=== PATIENT | female | born 1985 | race Hispanic/Latino ===

== ENCOUNTER 2018-03-24 16:02 | Observation (INO) | payer BC ==
[2018-03-24 16:41] LABS: VENOUS BLOOD GAS BASE EXCESS 2.8 mmol/L (0.0-2.0); VENOUS BLOOD GAS PCO2 63 mmHg (40-60); VENOUS BLOOD GAS PO2 17 mm/Hg (30-55)
[2018-03-24 16:45] LABS: BASO % 0.5 % (0.0-2.0); EOS % 0.1 % (0.0-4.0); HEMOGLOBIN 13.2 g/dL (12.0-16.0); LYMPH # 2.4 K/uL (1.0-4.3); MEAN CELL VOLUME 89.2 fl (81.0-99.0); MEAN CORPUSCULAR HEMOGLOBIN 29.8 pg (27.0-31.0); MEAN CORPUSCULAR HGB CONC 33.4 g/dL (33.0-37.0); MEAN PLATELET VOLUME 10.3 fl (7.2-11.7); MONO # 0.7 K/uL (0.0-0.8); MONO % 7.5 % (0.0-10.0); NEUT # 5.8 K/uL (1.8-7.0); NEUT % 64.9 % (50.0-75.0); NRBC % 0.1 % (0.0-0.0); RBC 4.42 Mil/uL (3.80-5.20); RED CELL DISTRIBUTION WIDTH 15.6 % (11.5-14.5)
[2018-03-24 16:46] LABS: PARTIAL THROMBOPLASTIN TIME 43.5 Seconds (25.6-37.1)
[2018-03-24 16:52] LABS: ALB/GLOB RATIO 1.4 (1.0-2.1); ALBUMIN 4.8 g/dL (3.5-5.0); ALT/SGPT 27 U/L (9-52); AST/SGOT 24 U/L (14-36); BLOOD UREA NITROGEN 15 mg/dl (7-17); CALCIUM 9.6 mg/dL (8.4-10.2); GFR NON-AFRICAN AMERICAN > 60
[2018-03-24] MEDS ORDERED: Sodium Chloride 0.9% 1,000 ML IV STA ×3 (17:02→17:57)
--- NOTE | 2018-03-24 17:12 | CP.PCM.HP ---
History of Present Illness - History of Present Illness History of Present Illness: 32yo female 1 week s/p LEEP cone bx. Pt reports multiple episodes of vaginal bleeding since procedure. Pt reports heavy bleeding today. Pt presented to ED with unstable VS and loss of consciousness. Pt given IVF and VS normalized. Present on Admission - Present on Admission Any Indicators Present on Admission: No History of DVT/PE: No History of Uncontrolled Diabetes: No Urinary Catheter: No Decubitus Ulcer Present: No Review of Systems - Review of Systems Systems not reviewed;Unavailable: Unstable Vital Signs Past Patient History - Past Social History Smoking Status: Never Smoked - ENDOCRINE/METABOLIC Hx Endocrine Disorders: Yes Hx Hypothyroidism: Yes - PSYCHIATRIC Hx Substance Use: No - SURGICAL HISTORY Hx Surgeries: Yes Other/Comment: Breast reduction, cone biopsy, pilonidal cyst removal. Meds Allergies/Adverse Reactions: Allergies Allergy/AdvReac Type Severity Reaction Status Date / Time No Known Allergies Allergy Verified 03/24/18 16:05 Physical Exam - Constitutional Appears: In Acute Distress - Respiratory Exam Respiratory Exam: Clear to Auscultation Bilateral, NORMAL BREATHING PATTERN - Cardiovascular Exam Cardiovascular Exam: REGULAR RHYTHM - GI/Abdominal Exam GI & Abdominal Exam: Soft. absent: Distended, Tenderness - Exam Additional comments: Large amount of blood and clots in vaginal. Area actively bleeding. Unable to fully visualize cervix due to heavy amount of bleeding. Results - Vital Signs Recent Vital Signs: Last Vital Signs Temp 98.3 F 03/24/18 17:05 Pulse 81 03/24/18 17:05 Resp 13 03/24/18 17:05 BP 136/88 03/24/18 17:05 Pulse Ox 99 03/24/18 16:05 - Labs Result Diagrams: 03/24/18 16:35 03/24/18 16:35 Labs: Laboratory Results - last 24 hr 03/24/18 03/24/18 03/24/18 16:15 16:31 16:35 WBC RBC Hgb Hct MCV MCH MCHC RDW Plt Count MPV Neut % (Auto) Lymph % (Auto) [place] % (Auto) Eos % (Auto) Baso % (Auto) Neut # (Auto) Lymph # (Auto) [place] # (Auto) Eos # (Auto) Baso # (Auto) PT INR APTT pO2 17 L VBG pH 7.30 L VBG pCO2 63 H VBG HCO3 25.0 VBG Total CO2 32.9 H VBG O2 Sat (Calc) 22.5 L VBG Base Excess 2.8 H VBG Potassium 3.6 Sodium 138.0 139 Chloride 100.0 99 Glucose 99 Lactate 2.0 FiO2 21.0 Blood Gas Comments Lac=2.0 Crit Value Called To blanca Alberto Crit Value Called By 22 Crit Value Read Back Y Blood Gas Notified Time 1640 Potassium 3.5 L Carbon Dioxide 26 Anion Gap 18 BUN 15 Creatinine 0.7 Est GFR ( Amer) > 60 Est GFR (Non-Af Amer) > 60 Random Glucose 105 Calcium 9.6 Total Bilirubin 0.2 AST 24 ALT 27 Alkaline Phosphatase 71 Total Protein 8.2 Albumin 4.8 Globulin 3.4 Albumin/Globulin Ratio 1.4 Beta HCG, Quant < 2.39 Venous Blood Potassium 3.6 Crossmatch See Detail 03/24/18 03/24/18 16:35 16:35 WBC 9.0 RBC 4.42 Hgb 13.2 Hct 39.4 MCV 89.2 MCH 29.8 MCHC 33.4 RDW 15.6 H Plt Count 223 MPV 10.3 Neut % (Auto) 64.9 Lymph % (Auto) 27.0 [place] % (Auto) 7.5 Eos % (Auto) 0.1 Baso % (Auto) 0.5 Neut # (Auto) 5.8 Lymph # (Auto) 2.4 [place] # (Auto) 0.7 Eos # (Auto) 0.0 Baso # (Auto) 0.0 PT 11.0 INR 1.0 APTT 43.5 H pO2 VBG pH VBG pCO2 VBG HCO3 VBG Total CO2 VBG O2 Sat (Calc) VBG Base Excess VBG Potassium Sodium Chloride Glucose Lactate FiO2 Blood Gas Comments Crit Value Called To Crit Value Called By Crit Value Read Back Blood Gas Notified Time Potassium Carbon Dioxide Anion Gap BUN Creatinine Est GFR ( Amer) Est GFR (Non-Af Amer) Random Glucose Calcium Total Bilirubin AST ALT Alkaline Phosphatase Total Protein Albumin Globulin Albumin/Globulin Ratio Beta HCG, Quant Venous Blood Potassium Crossmatch Assessment & Plan - Assessment and Plan (Free Text) Assessment: Acute vaginal bleeding s/p LEEP cone biopsy; Unstable VS with evidence of acute anemia. Plan: Discussed with patient the need for exam under anesthesia and stopping the bleeding with either electrocautery or suturing. Discussed the R/B/A of surgery with patient and all patient questions answered. OR notified and patient transferred STAT to ED. - Date & Time Date: 03/24/18 Time: 17:17
[2018-03-24] MEDS ORDERED: Phenylephrine 10 mg/ml Inj ONE (17:24)
[2018-03-24] MEDS ORDERED: Etomidate 20 mg/10ml Inj IV ONE (17:24)
[2018-03-24] MEDS ORDERED: Succinylcholine 200 mg/10 ml Inj IV ONE (17:24)
[2018-03-24] MEDS ORDERED: Lidocaine 4% (Laryng-O-Jet) Kit MM ONE (17:25)
[2018-03-24] MEDS ORDERED: Silver Nitrate Topical - Stick ONE (17:32)
[2018-03-24] MEDS ORDERED: cefOXitin IV 1 gm in Dextrose 0 GM/0 ML BAG IVPB ONE (17:32)
[2018-03-24] MEDS ORDERED: ACETIC ACID 3% 30 ML LIQUID MC ONE (17:32)
[2018-03-24] MEDS ORDERED: Bupivacaine HCl 0.5% PF (30 ml) Inj ONE (17:32)
[2018-03-24] MEDS ORDERED: Strong Iodine Topical Sol. 5%-10% ONE (17:32)
[2018-03-24] MEDS ORDERED: Ferric Subsulfate Sol(60 mL) ONE (17:32)
[2018-03-24] MEDS ORDERED: Sodium Chloride 0.9% 1,000 ML IV ONE (17:40)
[2018-03-24] MEDS ORDERED: Lactated Ringer's 1,000 ML IV ONE (18:00)
[2018-03-24] MEDS ORDERED: Dexamethasone 4 mg/1 ml ONE (18:24)
[2018-03-24] MEDS ORDERED: Lactated Ringer's 1,000 ML IV SCH (18:45)
--- NOTE | 2018-03-24 18:52 | ED PDOC ---
HPI: Female Pain Time Seen by Provider: 03/24/18 16:19 Chief Complaint (Nursing): Female Genitourinary History Per: Patient History/Exam Limitations: clinical condition Onset/Duration Of Symptoms: Days Current Symptoms Are (Timing): Still Present Additional Complaint(s): 32 yo F presented to the ED with complaint of vaginal bleeding following a colposcopy procedure. RN noted patient to be tachycardic and immediately placed IVs and began fluids and came to get this writter for immediate evaluation. On entering the room, the patient was altered and then became unconscious. Heart rate was seen to drop from the 70s at the time of entering the room to the 50s. Bright red blood was seen covering both legs and a large grapefruit sized clot seen between her legs with continuous bleeding from vagina seen. Pt was pale, unresponsive to sternal rub but BP was normal and breath sounds were clear bilaterally with 99% O2 sats on NC. A second liter of fluids was hung with pressure bags. Curber was immediately called to the ED, an RN went to the blood bank to get 2 units of O neg blood, and patient moved into the trauma room. Once in trauma room blood transfusion was started. In trauma room, pt became responsive and able to provide the following history : On March 18, pt had a cone biopsy performed by her table hand in [facility] (near pts home in [place]). Pt continued to have spotting for the next two days and return to the table hand and a "sponge" was place to stop the bleeding. TOday the patient had to take her son to [place] where he sees a specialist for a prosthetic eye. She was then driving to [place] to visit her sister when she noticed she was bleeding heavily. When she was closer to her sister's house, the blood was "pouring from the vagina". She called her sister to meet her at the hospital. Pt states she has been following a table hand routinely due to abnormalities following the of her last child 2 years ago and for HPV workup. She denies history of bleeding disorders. Pt has hypothyroidism and takes medications for that. Curber quickly responded to the ED and his initially evaluation, he determined the patient needed to go to the OR. Labs had been sent. Abnormal Vaginal Bleeding: Yes Past Medical History Vital Signs: Last Vital Signs Temp 98.1 F 03/24/18 17:47 Pulse 76 03/24/18 17:47 Resp 19 03/24/18 17:47 BP 129/70 03/24/18 17:47 Pulse Ox 100 03/24/18 17:47 - Medical History PMH: Hypothyroidism - Family History Family History: States: Unknown Family Hx - Home Medications Home Medications: Ambulatory Orders Medication Instructions Recorded Ethinyl Estradiol/Drospirenone 1 each PO DAILY 03/24/18 [Mary Carmen 28 Tablet] Levothyroxine [Synthroid] 75 mcg PO DAILY 03/24/18 Venlafaxine [Effexor XR] 150 mg PO DAILY 03/24/18 Venlafaxine [Effexor-XR] 75 mg PO DAILY 03/24/18 - Allergies Allergies/Adverse Reactions: Allergies Allergy/AdvReac Type Severity Reaction Status Date / Time No Known Allergies Allergy Verified 03/24/18 16:05 Review of Systems Constitutional: Positive for: Weakness Cardiovascular: Negative for: Chest Pain, Palpitations Respiratory: Negative for: Cough, Shortness of Breath Gastrointestinal: Negative for: Nausea, Vomiting, Abdominal Pain Genitourinary Female: Positive for: Vaginal Bleeding Neurological: Positive for: Weakness Physical Exam - Physical Exam Appears: Positive for: In Acute Distress Head Exam: Positive for: ATRAUMATIC Skin: Positive for: Pallor, Cyanosis Eye Exam: Positive for: Normal appearance, EOMI, PERRL Cardiovascular/Chest: Positive for: Bradycardia, Tachycardia (initially tachycardic and became bradycardic during resuscitaiton) Respiratory: Positive for: Normal Breath Sounds Pulses-Dorsalis Pedis (L): 1+ Pulses-Dorsalis Pedis (R): 1+ Pulses-Radial (L): 1+ Pulses-Radial (R): 1+ Pelvic Exam: Positive for: Active Bleeding (with large clots filling multiple basins) - Laboratory Results Result Diagrams: 03/25/18 05:45 03/24/18 16:35 - ECG O2 Sat by Pulse Oximetry: 100 - Critical Care Total Time (In Min): 100 (resuscitation and stabilation for OR) Medical Decision Making Medical Decision Making: see HPI. Pt initially walked in with vaginal bleeding following colposcopy. Sutures most likely didn't hold causing severe vaginal bleeding leading to hypovolemia. Pt responded to initial IV fluids and then was started on 2L of blood transfusion. Gyneclogist promptly responded to the ED and arrived as pt regained consciousness. Curber did pelvic exam and determined pt needed to go to the OR. Labs sent from ED and pt was able to provided consent. Additional PRBCs and IV fluids ordered. Disposition - Clinical Impression Clinical Impression: Acute bleeding, Vaginal bleeding - Patient ED Disposition Is Patient to be Admitted: Yes - Disposition Disposition Time: 15:40 Condition: CRITICAL
[2018-03-24] MEDS ORDERED: DROSPIRENONE PO SCH (23:11)
[2018-03-24] MEDS ORDERED: ETHINYL ESTRADIOL PO SCH (23:11)
[2018-03-24] MEDS: Venlafaxine 150 mg ER Cap PO SCH (23:54)
[2018-03-24] MEDS: Venlafaxine 75 mg ER Cap PO SCH (23:54)
[2018-03-25] MEDS: Levothyroxine 75 MCG TAB PO SCH ×2 (00:27→08:52)
[2018-03-25] MEDS: Oxycodone/Acetaminophen 5/325 mg Tab PO PRN ×2 (01:19→05:17)
[2018-03-25 06:43] LABS: HEMOGLOBIN 10.5 g/dL (12.0-16.0); MEAN CELL VOLUME 88.5 fl (81.0-99.0); MEAN CORPUSCULAR HEMOGLOBIN 30.7 pg (27.0-31.0); MEAN CORPUSCULAR HGB CONC 34.8 g/dL (33.0-37.0); RBC 3.4 Mil/uL (3.80-5.20); WHITE BLOOD COUNT 8.8 K/uL (4.8-10.8)
[2018-03-25 07:50] VITALS: BP 109/68; PULSE 80; RESP 18; TEMP 98.2
[2018-03-25] MEDS: Venlafaxine 75 mg ER Cap PO SCH ×2 (08:57→09:00)
[2018-03-25] MEDS: Venlafaxine 150 mg ER Cap PO SCH ×2 (08:57→09:00)
--- NOTE | 2018-03-25 09:11 | PCM.SURG1 ---
Surgeon's Initial Post Op Note - Surgeon's Notes Surgeon: Karyn It Director: N/A Type of Anesthesia: General Endo Anesthesia Administered By: Yapp Pre-Operative Diagnosis: Acute vaginal bleeding s/p LEEP bx Operative Findings: Cervix with acute bleeding Post-Operative Diagnosis: same Operation Performed: Revision of LEEP procedure site. Control of bleeding with electrocautery and suture Specimen/Specimens Removed: Portions of cervix Estimated Blood Loss: EBL {In ML}: 300 Blood Products Given: PRBC Drains Used: No Drains Post-Op Condition: Good Date of Surgery/Procedure: 03/24/18 Time of Surgery/Procedure: 17:30
--- NOTE | 2018-03-25 09:14 | CP.PCM.PN ---
Subjective - Date & Time of Evaluation Date of Evaluation: 03/25/18 Time of Evaluation: 09:13 - Subjective Subjective: Patient resting comfortably without complaints. Patient denies any pain. Any further bleeding. Patient denies any signs or symptoms of anemia. Objective - Vital Signs/Intake and Output Vital Signs (last 24 hours): Temp Pulse Resp BP Pulse Ox 98.2 F 80 18 109/68 99 03/25/18 07:49 03/25/18 07:49 03/25/18 07:49 03/25/18 07:49 03/25/18 07:49 Intake and Output: 03/25/18 03/25/18 06:59 18:59 Output Total 850 Balance -850 - Medications Medications: Current Medications Lactated Ringer's (Lactated Ringer's) 1,000 mls @ 100 mls/hr IV .Q10H [facility] Last Admin: 03/24/18 23:54 Dose: 100 mls/hr Ibuprofen (Motrin Tab) 600 mg PO Q8 PRN PRN Reason: Pain, moderate (4-7) Last Admin: 03/25/18 00:26 Dose: 600 mg Levothyroxine Sodium (Synthroid) 75 mcg PO DAILY@0630 [facility] Last Admin: 03/25/18 08:52 Dose: Not Given Oxycodone/Acetaminophen (Percocet 5/325 Mg Tab) 1 tab PO Q4 PRN PRN Reason: Pain, severe (8-10) Stop: 03/27/18 21:21 Last Admin: 03/25/18 05:17 Dose: 1 tab Venlafaxine HCl (Effexor Xr) 75 mg PO DAILY [facility] Last Admin: 03/25/18 09:00 Dose: Not Given Venlafaxine HCl (Effexor Xr) 150 mg PO DAILY [facility] Last Admin: 03/25/18 09:00 Dose: Not Given - Labs Labs: 03/25/18 05:45 03/24/18 16:35 PT 11.0 Seconds (9.8-13.1) 03/24/18 16:35 INR 1.0 03/24/18 16:35 APTT 43.5 Seconds (25.6-37.1) H 03/24/18 16:35 - Constitutional Appears: Well, Non-toxic, No Acute Distress - Head Exam Head Exam: ATRAUMATIC - Eye Exam Eye Exam: Normal appearance, PERRL - ENT Exam ENT Exam: Mucous Membranes Moist - Respiratory Exam Respiratory Exam: Clear to Ausculation Bilateral, NORMAL BREATHING PATTERN - Cardiovascular Exam Cardiovascular Exam: REGULAR RHYTHM - GI/Abdominal Exam GI & Abdominal Exam: Soft. absent: Distended, Tenderness Assessment and Plan - Assessment and Plan (Free Text) Assessment: Status post revision of LEEP cone biopsy site and control of hemorrhage. Patient recovering well. Posttransfusion CBC stable. Plan: Discharge home today. Patient will follow up with primary physician in 2-3 days.
--- NOTE | 2018-03-25 09:16 | CP.PCM.DIS ---
Provider - Provider Date of Admission: 03/24/18 16:43 Attending physician: Phan Boss MD Time Spent in preparation of Discharge (in minutes): 10 Diagnosis - Discharge Diagnosis (1) Acute bleeding Status: Acute (2) Acute blood loss anemia Status: Acute Hospital Course - Lab Results Lab Results: Most Recent Lab Values WBC 8.8 K/uL (4.8-10.8) 03/25/18 05:45 RBC 3.40 Mil/uL (3.80-5.20) L 03/25/18 05:45 Hgb 10.5 g/dL (12.0-16.0) L D 03/25/18 05:45 Hct 30.1 % (34.0-47.0) L 03/25/18 05:45 MCV 88.5 fl (81.0-99.0) 03/25/18 05:45 MCH 30.7 pg (27.0-31.0) 03/25/18 05:45 MCHC 34.8 g/dL (33.0-37.0) 03/25/18 05:45 RDW 15.0 % (11.5-14.5) H 03/25/18 05:45 Plt Count 127 K/uL (130-400) L D 03/25/18 05:45 MPV 10.3 fl (7.2-11.7) 03/24/18 16:35 Neut % (Auto) 64.9 % (50.0-75.0) 03/24/18 16:35 Lymph % (Auto) 27.0 % (20.0-40.0) 03/24/18 16:35 [place] % (Auto) 7.5 % (0.0-10.0) 03/24/18 16:35 Eos % (Auto) 0.1 % (0.0-4.0) 03/24/18 16:35 Baso % (Auto) 0.5 % (0.0-2.0) 03/24/18 16:35 Neut # (Auto) 5.8 K/uL (1.8-7.0) 03/24/18 16:35 Lymph # (Auto) 2.4 K/uL (1.0-4.3) 03/24/18 16:35 [place] # (Auto) 0.7 K/uL (0.0-0.8) 03/24/18 16:35 Eos # (Auto) 0.0 K/uL (0.0-0.7) 03/24/18 16:35 Baso # (Auto) 0.0 K/uL (0.0-0.2) 03/24/18 16:35 PT 11.0 Seconds (9.8-13.1) 03/24/18 16:35 INR 1.0 03/24/18 16:35 APTT 43.5 Seconds (25.6-37.1) H 03/24/18 16:35 pO2 17 mm/Hg (30-55) L 03/24/18 16:31 VBG pH 7.30 (7.32-7.43) L 03/24/18 16:31 VBG pCO2 63 mmHg (40-60) H 03/24/18 16:31 VBG HCO3 25.0 mmol/L 03/24/18 16:31 VBG Total CO2 32.9 mmol/L (22-28) H 03/24/18 16:31 VBG O2 Sat (Calc) 22.5 % (40-65) L 03/24/18 16:31 VBG Base Excess 2.8 mmol/L (0.0-2.0) H 03/24/18 16:31 VBG Potassium 3.6 mmol/L (3.6-5.2) 03/24/18 16:31 Sodium 138.0 mmol/L (132-148) 03/24/18 16:31 Chloride 100.0 mmol/L (98-107) 03/24/18 16:31 Glucose 99 mg/dL (65-105) 03/24/18 16:31 Lactate 2.0 mmol/L (0.7-2.1) 03/24/18 16:31 FiO2 21.0 % 03/24/18 16:31 Blood Gas Comments Lac=2.0 03/24/18 16:31 Crit Value Called To blanca Alberto 03/24/18 16:31 Crit Value Called By 03/24/18 16:31 Crit Value Read Back Y 03/24/18 16:31 Blood Gas Notified Time 1640 03/24/18 16:31 Sodium 139 mmol/l (132-148) 03/24/18 16:35 Potassium 3.5 MMOL/L (3.6-5.0) L 03/24/18 16:35 Chloride 99 mmol/L (98-107) 03/24/18 16:35 Carbon Dioxide 26 mmol/L (22-30) 03/24/18 16:35 Anion Gap 18 (10-20) 03/24/18 16:35 BUN 15 mg/dl (7-17) 03/24/18 16:35 Creatinine 0.7 mg/dl (0.7-1.2) 03/24/18 16:35 Est GFR ( Amer) > 60 03/24/18 16:35 Est GFR (Non-Af Amer) > 60 03/24/18 16:35 Random Glucose 105 mg/dL (65-105) 03/24/18 16:35 Calcium 9.6 mg/dL (8.4-10.2) 03/24/18 16:35 Total Bilirubin 0.2 mg/dl (0.2-1.3) 03/24/18 16:35 AST 24 U/L (14-36) 03/24/18 16:35 ALT 27 U/L (9-52) 03/24/18 16:35 Alkaline Phosphatase 71 U/L (38-126) 03/24/18 16:35 Total Protein 8.2 G/DL (6.3-8.2) 03/24/18 16:35 Albumin 4.8 g/dL (3.5-5.0) 03/24/18 16:35 Globulin 3.4 gm/dL (2.2-3.9) 03/24/18 16:35 Albumin/Globulin Ratio 1.4 (1.0-2.1) 03/24/18 16:35 Beta HCG, Quant < 2.39 mIU/mL 03/24/18 16:35 Venous Blood Potassium 3.6 mmol/L (3.6-5.2) 03/24/18 16:31 Blood Type O POSITIVE 03/24/18 16:15 Antibody Screen Negative 03/24/18 16:15 Crossmatch See Detail 03/24/18 16:15 BBK History Checked No verified bt 03/24/18 16:15 Discharge Exam - Head Exam Head Exam: ATRAUMATIC Discharge Plan - Follow Up Plan Condition: GOOD Disposition: HOME/ ROUTINE
--- NOTE | 2018-03-25 09:34 | CARD ---
APPROVED REPORT Date of service: 03/24/2018 <Conclusion> Poor data quality, interpretation may be adversely affected Sinus bradycardia Otherwise normal ECG
[2018-03-25 14:22] VITALS: O2SAT 100
--- NOTE | 2018-03-25 20:26 | OP ---
Copied To: Phan Boss MD Attending MD: Phan Boss MD PROCEDURE DATE: 03/24/2018 PREOPERATIVE DIAGNOSES: Acute vaginal bleedings, approximately one week status post loop electrosurgery excision procedure cone biopsy. Acute anemia due to blood loss, requiring transfusion. POSTOPERATIVE DIAGNOSES: Acute vaginal bleedings, approximately one week status post loop electrosurgery excision procedure cone biopsy. Acute anemia due to blood loss, requiring transfusion. OPERATION PERFORMED: Examination under anesthesia, revision of loop electrosurgery excision procedure cone biopsy site, controlling of hemorrhage with electrocautery and suturing. OPERATIVE FINDINGS: Cone biopsy site with active bleeding. Otherwise, normal appearing pelvic anatomy. ESTIMATED BLOOD LOSS: 300 mL intraoperatively. FLUIDS: 800 mL lactated Ringer's. URINE OUTPUT: 200 mL of clear urine. The patient received 2 units of packet red blood cells preoperatively and intraoperatively. SURGEON: Phan Boss MD ANESTHESIOLOGIST: Phan Jarvis MD ANESTHESIA: General. DESCRIPTION OF PROCEDURE: The patient was taken to the operating room where general anesthesia was found to be adequate. The patient was prepped and draped in normal sterile fashion in dorsal lithotomy position. A weighted speculum was placed at the posterior aspect of the vagina. The Farias retractor was placed at the anterior surface of the vagina. After removal of blood and clots from vagina, the cervix was visualized. Multiple areas of the cervix were found to be actively bleeding. Due to location of bleeding, a decision for revision of biopsy site. With loop electrocautery, an approximately 1 cm to 2 cm in length portion was removed from the cervix. After removal of this portion of the cervix, the biopsy sites were treated with electrocautery until hemostasis noted. Interrupted sutures were placed at the lateral aspect of the cervix to promote continued hemostasis. At approximately 3 o'clock and 9 o'clock locations, interrupted suture of 0 Vicryl was placed. After placement of both sutures, reinspection of the cervix was found to be hemostatic. The patient tolerated the procedure well. Sponge, lap, and needle counts were correct x2. There were no complications. The patient was taken to recovery room awake in stable condition. Phan Boss MD [facility] # [id number]
== END 2018-03-25 12:31 | disposition home or self-care (01) ==
LOC: H.ER 16:02 → H.ERHOLD 16:43 → H.MEDSURG1 21:40
PROVIDERS: ADMIT Obstetrics & Gynecology; ATTEND Obstetrics & Gynecology
DX: N99.820 Postprocedural hemorrhage of a genitourinary system organ or structure following a genitourinary system procedure (principal); D62 Acute posthemorrhagic anemia; E86.1 Hypovolemia; E03.9 Hypothyroidism, unspecified; Y84.8 Other medical procedures as the cause of abnormal reaction of the patient, or of later complication, without mention of misadventure at the time of the procedure
CPT/HCPCS: 36415; 36430; 57522; 57720; 80053; 82803; 84702; 85025; 85027; 85610; 85730; 86850; 86900; 86920; 88307; 93005; 96360; 99285; G0378; J0330; J1100; J1170; J2370; J2405; J2765; J3010; J7030; J7120; P9051